=== PATIENT | female | born 1965 | race Caucasian/White ===

== ENCOUNTER → 2016-11-22 | Outpatient (CLI) | payer BC | END | disposition home or self-care (01) | LOC: MAMMO 10:03 | DX: Z12.31 Encounter for screening mammogram for malignant neoplasm of breast (principal) ==

== ENCOUNTER → 2017-03-06 | Day surgery (SDC) | payer BC ==
[~2017-03-06] VITALS: Ht 160 cm; Wt 62.6 kg
[~2017-03-06] MED LIST: BLACK COHOSH200 MG PO; CYCLOBENZAPRINE10 MG PO; TRAMADOL HCL50 MG PO
--- NOTE | ~2017-03-06 | O ---
[place], [place] OPERATIVE NOTE NAME: MICHELLE RUSS UNIT #: [id number] ROOM: DOCTOR: HERBER JETT MD BIRTHDATE: [birth year] DOS: 03/06/2017 GASTROENDOSCOPIC REPORT INDICATIONS: This is a 51-year-old patient who presented with chief complaint of concern about colonic screening. FAMILY HISTORY: Positive for colonic carcinoma in father and grandmother. ALLERGIES: CLINDAMYCIN, PENICILLIN. PAST SURGICAL HISTORY: Tonsillectomy. PAST MEDICAL HISTORY: Uterine CA. SOCIAL HISTORY: Has been a smoker up to a year and half ago and does ____ these days. Rare alcohol consumer. PROCEDURE: Today's procedure part of investigation is colonoscopy plus polypectomy. PREMEDICATION: Versed and Diprivan. SCOPE: Olympus folding colonoscope 10L video. REPORT: After putting the patient in left lateral position and application of lubricant to the scope, the scope was introduced. Thereafter, under direct visualization, I advanced the length of colon without difficulty. Base of the cecum explored, appendiceal orifice identified, ileocecal valve was defined. Scope was gradually withdrawn from ascending, transverse, descending colon back to the rectal pouch, sessile colonic polyp in rectal pouch with piecemeal polypectomy removed. The patient extubated, tolerated procedure well. IMPRESSION: Rectal polypoid lesion, sessile in character. Otherwise, normal colonoscopic examination. PLAN: High fiber diet. ACTIVITY: Ad lv. FOLLOWUP: Routinely with you in office and p.r.n. visit with us in 2 weeks, otherwise she may need a colonoscopy in 5 years follow up. [place], [place] OPERATIVE NOTE NAME: MICHELLE RUSS UNIT #: [id number] ROOM: DOCTOR: HERBER JETT MD BIRTHDATE: [birth year] HERBER JETT MD CM:OPRECORD:OPERATIVE NOTE [id number] NAYANA JETT MD 03/06/17 0954 interface
[2017-03-06 08:03] VITALS: BP 123/69
[2017-03-06 08:26] VITALS: BP 94/52
[2017-03-06 08:40] VITALS: BP 106/63
[2017-03-06 08:53] VITALS: BP 105/74
== END | disposition home or self-care (01) ==
LOC: SDC 03-01 08:00
DX: Z12.11 Encounter for screening for malignant neoplasm of colon (principal); Z80.0 Family history of malignant neoplasm of digestive organs; Z88.0 Allergy status to penicillin; Z88.1 Allergy status to other antibiotic agents; Z98.890 Other specified postprocedural states; Z85.42 Personal history of malignant neoplasm of other parts of uterus; K62.1 Rectal polyp; Z87.891 Personal history of nicotine dependence; Z79.899 Other long term (current) drug therapy